=== PATIENT | male | born 1965 | race Caucasian/White ===

== ENCOUNTER 2021-10-15 10:05 | Emergency (ER) | payer BC ==
[~2021-10-15] VITALS: Ht 185.4 cm; Wt 95.3 kg
[2021-10-15 10:05] VITALS: BP_SYST 151
[2021-10-15] MEDS ORDERED: ONDANSETRON HCL 4 MG/2 ML VIAL IVP ONE (10:30)
--- NOTE | 2021-10-15 10:30 | NUR ---
RECEIVED PT IN BED #2, CAME FROM HOME WITH CC OF N/V AND DIZZINESS. PT IS STABLE, NAD, VSS, WAS WORKING OUT THE GYM AND HAD SUDDEN ONSET OF N/V AND DIZZINESS. AWAITING FURTHER ASSESSMENT BY ED MD FOR DISPOSITION WITH PLAN OF CARE.
--- NOTE | 2021-10-15 10:38 | NUR ---
# 20 gauge angiocath placed to LAC. Use of asceptic technique. Opsite placed over site. Blood return noted. Blood for lab drawn from site. Flushed with 10 cc of normal saline. No evidence of infiltration noted. Patient tolerated well.
--- NOTE | 2021-10-15 10:40 | NUR ---
ED MD AT BEDSIDE FOR EVALUATION.
[2021-10-15 11:01] LABS: BASOPHILS % (AUTO) 0.5 % (0.0-2.0); EOSINOPHILS # (AUTO) 0.1 K/uL (0.0-0.4); EOSINOPHILS % (AUTO) 0.9 % (0.0-4.0); HEMOGLOBIN 14.4 g/dL (14.0-18.0); LYMPHOCYTES # (AUTO) 2.6 K/uL (1.0-5.5); LYMPHOCYTES % (AUTO) 37.2 % (20.5-51.5); MEAN CORPUSCULAR HEMOGLOBIN 33 pg (27-31); MEAN CORPUSCULAR HGB CONC 34 % (32-36); MEAN CORPUSCULAR VOLUME 95 fL (79.0-98.0); MONOCYTES # (AUTO) 0.5 K/uL (0.0-1.0); MONOCYTES % (AUTO) 6.5 % (1.7-9.3); NEUTROPHILS # (AUTO) 3.8 K/uL (1.8-7.7); NEUTROPHILS % (AUTO) 54.9 % (40.0-70.0); PLATELET COUNT (AUTO) 196 K/uL (130-430); RED BLOOD CELL COUNT(AUTO) 4.41 MIL/uL (4.2-6.2); RED CELL DISTRIBUTION WIDTH 13.5 % (9.0-15.0)
[2021-10-15 11:15] LABS: CALCIUM 9.2 mg/dL (8.4-11.0); CREATININE 1.11 mg/dL (0.55-1.30); POTASSIUM 3.8 mmol/L (3.5-5.1)
[2021-10-15 11:27] LABS: ALBUMIN 4.3 g/dL (3.4-4.8); TOTAL BILIRUBIN 0.5 mg/dL (0.0-1.0)
[2021-10-15] MEDS ORDERED: MECLIZINE HCL 25 MG TABLET (ANITVERT) PO ONE (12:15)
[2021-10-15] MEDS ORDERED: MECL-225 PO (12:57)
[2021-10-15 13:00] VITALS: BP_SYST 142
--- NOTE | 2021-10-15 13:02 | NUR ---
Patient given written and verbal discharge instructions and verbalizes understanding. ER MD discussed with patient the results and treatment provided. Patient in stable condition. ID arm band removed. IV catheter removed intact and dressing applied, no active bleeding. Rx of given. Opportunity for questions provided and answered. Medication side effect fact sheet provided.
== END 2021-10-15 13:02 | disposition home or self-care (01) ==
LOC: SED 10:05
DX: R42 Dizziness and giddiness (principal); R11.2 Nausea with vomiting, unspecified; Z79.899 Other long term (current) drug therapy
CPT/HCPCS: 36415; 70450; 76376; 80053; 84484; 85025; 93005; 96374; 99285; J2405; J8597